=== PATIENT | male | born 1940 | race Caucasian/White ===

== ENCOUNTER 2020-07-06 09:27 | Day surgery (SDC) | payer MEDICARE, OTHER ==
[2020-07-06] MEDS ORDERED: Propofol 200 MG/20 ML SDV ONE (09:40)
[2020-07-06] MEDS ORDERED: fentaNYL 100 MCG/2 ML SDV ONE (09:40)
[2020-07-06] MEDS ORDERED: Dextrose 5%-Lactated Ringers 1,000 ML IV SCH (10:30)
--- NOTE | 2020-07-25 16:35 | OR ---
DATE OF PROCEDURE: 07/06/2020 SURGEON: Anish Ramos MD PREOPERATIVE DIAGNOSIS: Positive fecal immunochemical test. POSTOPERATIVE DIAGNOSES: 1. Positive fecal immunochemical test. 2. Single 1 cm polyp in distal sigmoid colon. OPERATIVE PROCEDURE: Flexible colonoscopy with polypectomy by snare technique. ANESTHESIA: IV sedation. INDICATIONS FOR PROCEDURE: This is an 80-year-old male presenting with a positive FIT test and is to undergo colonoscopy with biopsies and/or polypectomy as indicated. Potential risks including bleeding and perforation were discussed, and the patient wishes to proceed. DETAILS OF PROCEDURE: The patient was taken to the operating room and placed in a left lateral decubitus position. IV sedation was administered after which the initial digital rectal exam was performed and was unremarkable. Colonoscope was then passed into the rectum with retroflexion revealing uncomplicated hemorrhoidal columns. Scope was eventually passed to the level of the cecum. The prep was fairly good with the colonoscope being able to pass into the cecum without significant difficulty. There was no diverticular disease or colitis. A single polyp measuring around 1 cm in the distal sigmoid colon. This was encircled at its base with snare and cauterized and removed and sent for histologic evaluation. Good hemostasis was noted at the polypectomy site, and the procedure was then concluded. This was a fairly large polyp with a reasonably broad base. Given this, the next colonoscopy should probably be considered in 2 years assuming the patient's health remains satisfactory. Anish Ramos MD /[id number]
== END 2020-07-06 13:02 | disposition home or self-care (01) ==
LOC: JP.SDS 09:27
PROVIDERS: ATTEND Surgery
DX: D12.6 Benign neoplasm of colon, unspecified (principal); K64.9 Unspecified hemorrhoids; I10 Essential (primary) hypertension; E05.90 Thyrotoxicosis, unspecified without thyrotoxic crisis or storm
CPT/HCPCS: 45385; 88305; J2704; J3010; J7121

== ENCOUNTER 2022-09-30 07:05 | Day surgery (SDC) | payer MEDICARE ==
[~2022-09-30 07:05] MED LIST: Propofol 200 MG/20 ML SDV ONE; fentaNYL 100 MCG/2 ML SDV ONE
[2022-09-30] MEDS ORDERED: Dextrose 5%-Lactated Ringers 1,000 ML IV SCH (07:30)
[2022-09-30] MEDS ORDERED: Propofol 200 MG/20 ML SDV ONE (09:12)
== END 2022-09-30 11:00 | disposition home or self-care (01) ==
LOC: JP.SDS 07:05
PROVIDERS: ATTEND Surgery
DX: D12.2 Benign neoplasm of ascending colon (principal); I10 Essential (primary) hypertension; I35.0 Nonrheumatic aortic (valve) stenosis; E05.90 Thyrotoxicosis, unspecified without thyrotoxic crisis or storm; E05.00 Thyrotoxicosis with diffuse goiter without thyrotoxic crisis or storm
CPT/HCPCS: 88305; J2704; J3010; J7121